=== PATIENT | male | born 1970 | race Caucasian/White ===

== ENCOUNTER 2020-05-31 08:25 | Day surgery (SDC) | payer OTHER ==
[2020-05-26 16:03] VITALS: BMI 25.8
[~2020-05-31 08:25] MED LIST: LACTATED RINGERS 1,000 ML IV SCH; LIDOCAINE 1% (10MG/ML) FOR IV START INTRADERMA PRN
--- NOTE | 2020-05-31 08:34 | P.GSHP ---
History of Present Illness H&P Date: 05/31/20 CHIEF COMPLAINT: Colon screen HISTORY OF PRESENT ILLNESS: The patient is a 50-year-old male who presents for colon screen. Lower endoscopy was offered for further evaluation and management. PAST MEDICAL HISTORY: Please see list. PAST SURGICAL HISTORY: Please see list. MEDICATIONS: Please see list. ALLERGIES: Please see list. SOCIAL HISTORY: No illicit drug use FAMILY HISTORY: No reports of Crohn disease or ulcerative colitis. REVIEW OF ORGAN SYSTEMS: CONSTITUTIONAL: No reports of fevers or chills. PHYSICAL EXAM: VITAL SIGNS: Stable GENERAL: Well-developed pleasant in no acute distress. HEENT: No scleral icterus. Extraocular movements grossly intact. Moist buccal mucosa. NECK: Supple without lymphadenopathy. CHEST: Unlabored respirations. Equal bilateral excursions. CARDIOVASCULAR: Regular rate and rhythm. Distal 2+ pulses. ABDOMEN: Soft, nontender, nondistended. MUSCULOSKELETAL: No clubbing, cyanosis, or edema. ASSESSMENT: 1. Colon screen. PLAN: 1. Recommend proceeding with a lower endoscopy Past Medical History Past Medical History: Asthma History of Any Multi-Drug Resistant Organisms: None Reported Past Surgical History: Orthopedic Surgery Additional Past Surgical History / Comment(s): REPAIR FX JAW. ORIF RT WRIST Past Anesthesia/Blood Transfusion Reactions: No Reported Reaction Smoking Status: Current every day smoker - Past Family History Mother Family Medical History: Cancer Medications and Allergies Home Medications Medication Instructions Recorded Confirmed Type Albuterol Inhaler (Mhu) [Ventolin 1 - 2 puff IH TID 09/19/14 05/26/20 History Hfa Inhaler (Mhu)] Budesonide/Formoterol Fumarate 2 puff INHALATION BID 05/26/20 05/26/20 History [Symbicort 160-4.5 Mcg Inhaler] Allergies Allergy/AdvReac Type Severity Reaction Status Date / Time No Known Allergies Allergy Verified 05/26/20 15:47
[2020-05-31] MEDS ORDERED: LACTATED RINGERS 1,000 ML IV ONE ×2 (08:45)
[2020-05-31 09:06] VITALS: RESP 16; TEMP 97.2
[2020-05-31] MEDS ORDERED: PROPOFOL 10 MG/ML 20 ML VIAL IV ONE (09:32)
--- NOTE | 2020-05-31 09:54 | P.PCN ---
Date of Procedure: 05/31/20 Description of Procedure: PREOPERATIVE DIAGNOSIS: Colonoscopy screening Family history colon cancer, mother POSTOPERATIVE DIAGNOSIS: Colonoscopy screening Family history colon cancer, mother Tubular adenoma ascending colon 2 OPERATION: Colonoscopy to the ileocecal valve and appendiceal orifice, cecum Colonoscopy with hot snare polypectomy SURGEON: Lu Soler MD. ANESTHESIA: MAC. INDICATIONS: The patient is an 50-year-old male who presents family history of colon cancer. Benefits and risks were described and informed consent was obtained. DESCRIPTION OF PROCEDURE: The patient had undergone Suprep. The patient had been brought into the operating room and laid in the left lateral decubitus position. After adequate intravenous sedation, the rectum was examined with 2% lidocaine jelly. The prostate was unremarkable. External hemorrhoids were encountered. The rectal tone was within normal limits. No lesions were palpated in the rectal vault. An Olympus colonoscope was advanced until the cecum, ileocecal valve and appendiceal orifice were clearly viewed. The prep was excellent. Sigmoid diverticulosis was encountered. Colonic polyps were found and removed. No evidence of focal colitis was found. Retroflexion of the scope demonstrated grade 2 internal hemorrhoids without active bleeding or inflammation. The colon was desufflated. The patient had tolerated the procedure well. Withdrawal time was over 6 minutes. FINDINGS: Aronchick preparation quality scale 1 (1-5) Internal hemorrhoids, grade 2 External hemorrhoids, grade 2. No arteriovenous malformations Sigmoid diverticulosis Removal of 2 polyps: - Snare polypectomy ascending colon, 5 mm and 10 mm tubulovillous adenoma polyp. No focal colitis. RECOMMENDATIONS: Given severity of tubular adenomas, recommend repeat colonoscopy 2 years, 2022. Plan - Discharge Summary Discharge Rx Participant: No New Discharge Prescriptions: Continue Albuterol Inhaler (Mhu) [Ventolin Hfa Inhaler (Mhu)] 1 - 2 puff IH TID Budesonide/Formoterol Fumarate [Symbicort 160-4.5 Mcg Inhaler] 2 puff INHALATION BID Discharge Medication List Albuterol Inhaler (Mhu) [Ventolin Hfa Inhaler (Mhu)] 1 - 2 puff IH TID 09/19/14 [History] Budesonide/Formoterol Fumarate [Symbicort 160-4.5 Mcg Inhaler] 2 puff INHALATION BID 05/26/20 [History] Follow up Appointment(s)/Referral(s): Lu Soler MD [STAFF PHYSICIAN] - 1 Week Patient Instructions/Handouts: *Surgery [facility] - (Anesthesia) Endoscopy Discharge Instructions, Colonoscopy (DC), Colorectal Polyps (DC), Diverticulosis Diet (G EN), Diverticulosis (DC) Activity/Diet/Wound Care/Special Instructions: Repeat colonoscopy in 2 years, 2022 Discharge Disposition: HOME SELF-CARE
[2020-05-31 10:55] VITALS: BP 107/73; PULSE 65
== END 2020-05-31 10:45 | disposition home or self-care (01) ==
LOC: ORWHC2ENDO 08:25
PROVIDERS: ATTEND Surgery Plastic and Reconstructive Surgery
DX: Z12.11 Encounter for screening for malignant neoplasm of colon (principal); D12.2 Benign neoplasm of ascending colon; K64.4 Residual hemorrhoidal skin tags; K57.30 Diverticulosis of large intestine without perforation or abscess without bleeding; Z80.0 Family history of malignant neoplasm of digestive organs; K64.1 Second degree hemorrhoids; J45.909 Unspecified asthma, uncomplicated; F17.210 Nicotine dependence, cigarettes, uncomplicated; Z79.51 Long term (current) use of inhaled steroids; Z79.899 Other long term (current) drug therapy; Z98.890 Other specified postprocedural states
CPT/HCPCS: 88305; 45385; J2704

== ENCOUNTER 2020-12-27 07:20 | Emergency (ER) | payer OTHER ==
[2020-12-27 07:27] VITALS: BP 111/82; PULSE 70; RESP 18; TEMP 97.6
[2020-12-27] MEDS ORDERED: HYDROmorphone 1 MG/ML 1 ML SYRINGE IVP STA (07:38)
--- NOTE | 2020-12-27 07:43 | ED ---
General Adult HPI - General Chief complaint: Chest Pain Stated complaint: chest pain Time Seen by Provider: 12/27/20 07:29 Source: patient, RN notes reviewed Mode of arrival: wheelchair Limitations: no limitations - History of Present Illness Initial comments: Patient is a pleasant 50-year-old male presenting to the emergency department with chest injury. Incident occurred a week ago Friday, proximally 9 days ago. Patient was playing basketball when his son struck his shoulder into his chest. He states his son is a big anthony. Patient has had persistent discomfort since that time. Patient did go to a different ER and had an x-ray done. Patient did follow-up with primary care physician who requested getting x-rays of the sternum and ribs. Patient states discomfort is persistent and increases with deep breaths and movements. Patient occasionally hears a clicking sound. No history of similar symptoms previous. No leg pain or leg swelling. - Related Data Home Medications Medication Instructions Recorded Confirmed Albuterol Inhaler (Mhu) [Ventolin 1 - 2 puff IH TID 09/19/14 05/31/20 Hfa Inhaler (Mhu)] Budesonide/Formoterol Fumarate 2 puff INHALATION BID 05/26/20 05/31/20 [Symbicort 160-4.5 Mcg Inhaler] Previous Rx's Medication Instructions Recorded Ibuprofen [Motrin] 600 mg PO Q6HR PRN #20 tab 12/27/20 Allergies Allergy/AdvReac Type Severity Reaction Status Date / Time No Known Allergies Allergy Verified 12/27/20 07:24 Review of Systems ROS Statement: Those systems with pertinent positive or pertinent negative responses have been documented in the HPI. ROS Other: All systems not noted in ROS Statement are negative. Constitutional: Denies: fever Eyes: Denies: eye pain ENT: Denies: ear pain Respiratory: Reports: cough. Denies: dyspnea Cardiovascular: Reports: as per HPI Endocrine: Denies: fatigue Gastrointestinal: Denies: abdominal pain Genitourinary: Denies: dysuria Musculoskeletal: Denies: back pain Skin: Denies: rash Neurological: Denies: weakness Past Medical History Past Medical History: Asthma History of Any Multi-Drug Resistant Organisms: None Reported Past Surgical History: Orthopedic Surgery Additional Past Surgical History / Comment(s): REPAIR FX JAW. ORIF RT WRIST Past Anesthesia/Blood Transfusion Reactions: No Reported Reaction Past Psychological History: No Psychological Hx Reported Smoking Status: Never smoker Past Alcohol Use History: Occasional Past Drug Use History: Marijuana - Past Family History Mother Family Medical History: Cancer General Exam Limitations: no limitations General appearance: alert, in no apparent distress Head exam: Present: normocephalic Eye exam: Present: normal appearance Neck exam: Present: normal inspection Respiratory exam: Present: normal lung sounds bilaterally, chest wall tenderness (Anterior left chest wall) Cardiovascular Exam: Present: regular rate, normal rhythm GI/Abdominal exam: Present: soft. Absent: tenderness Extremities exam: Present: normal inspection Neurological exam: Present: alert Psychiatric exam: Present: normal affect, normal mood Skin exam: Present: normal color Course Vital Signs 12/27/20 07:24 Temperature 97.6 F Pulse Rate 70 Respiratory 18 Rate Blood Pressure 111/82 O2 Sat by Pulse 97 Oximetry EKG Findings - EKG Comments: EKG Findings:: Normal sinus rhythm with a rate of 72. IN 146. QRS 108. QT 32. QTC 418. Normal axis. Normal QRS. No acute ST change. Medical Decision Making - Medical Decision Making Patient reevaluated and updated - Lab Data Result diagrams: 12/27/20 07:50 12/27/20 07:50 Lab Results 12/27/20 12/27/20 12/27/20 Range/Units 07:50 07:50 07:50 WBC 8.7 (3.8-10.6) k/uL RBC 4.93 (4.30-5.90) m/uL Hgb 16.5 (13.0-17.5) gm/dL Hct 47.2 (39.0-53.0) % MCV 95.8 (80.0-100.0) fL MCH 33.4 (25.0-35.0) pg MCHC 34.9 (31.0-37.0) g/dL RDW 12.6 (11.5-15.5) % Plt Count 256 (150-450) k/uL MPV 7.6 Neutrophils % 75 % Lymphocytes % 17 % Monocytes % 4 % Eosinophils % 3 % Basophils % 0 % Neutrophils # 6.5 (1.3-7.7) k/uL Lymphocytes # 1.5 (1.0-4.8) k/uL Monocytes # 0.3 (0-1.0) k/uL Eosinophils # 0.3 (0-0.7) k/uL Basophils # 0.0 (0-0.2) k/uL PT 10.6 (9.0-12.0) sec INR 1.0 (<1.2) APTT 24.3 (22.0-30.0) sec D-Dimer <0.17 (<0.60) mg/L FEU Sodium 138 (137-145) mmol/L Potassium 4.3 (3.5-5.1) mmol/L Chloride 107 (98-107) mmol/L Carbon Dioxide 21 L (22-30) mmol/L Anion Gap 10 mmol/L BUN 13 (9-20) mg/dL Creatinine 0.94 (0.66-1.25) mg/dL Est GFR (CKD-EPI)AfAm >90 (>60 ml/min/1.73 sqM) Est GFR (CKD-EPI)NonAf >90 (>60 ml/min/1.73 sqM) Glucose 167 H (74-99) mg/dL Calcium 9.4 (8.4-10.2) mg/dL Magnesium 1.8 (1.6-2.3) mg/dL Total Bilirubin 0.6 (0.2-1.3) mg/dL AST 25 (17-59) U/L ALT 19 (4-49) U/L Alkaline Phosphatase 73 (38-126) U/L Creatine Kinase 92 (55-170) U/L Troponin I (0.000-0.034) ng/mL Total Protein 6.2 L (6.3-8.2) g/dL Albumin 3.8 (3.5-5.0) g/dL Coronavirus (PCR) (Not Detectd) 12/27/20 12/27/20 Range/Units 07:50 07:50 WBC (3.8-10.6) k/uL RBC (4.30-5.90) m/uL Hgb (13.0-17.5) gm/dL Hct (39.0-53.0) % MCV (80.0-100.0) fL MCH (25.0-35.0) pg MCHC (31.0-37.0) g/dL RDW (11.5-15.5) % Plt Count (150-450) k/uL MPV Neutrophils % % Lymphocytes % % Monocytes % % Eosinophils % % Basophils % % Neutrophils # (1.3-7.7) k/uL Lymphocytes # (1.0-4.8) k/uL Monocytes # (0-1.0) k/uL Eosinophils # (0-0.7) k/uL Basophils # (0-0.2) k/uL PT (9.0-12.0) sec INR (<1.2) APTT (22.0-30.0) sec D-Dimer (<0.60) mg/L FEU Sodium (137-145) mmol/L Potassium (3.5-5.1) mmol/L Chloride (98-107) mmol/L Carbon Dioxide (22-30) mmol/L Anion Gap mmol/L BUN (9-20) mg/dL Creatinine (0.66-1.25) mg/dL Est GFR (CKD-EPI)AfAm (>60 ml/min/1.73 sqM) Est GFR (CKD-EPI)NonAf (>60 ml/min/1.73 sqM) Glucose (74-99) mg/dL Calcium (8.4-10.2) mg/dL Magnesium (1.6-2.3) mg/dL Total Bilirubin (0.2-1.3) mg/dL AST (17-59) U/L ALT (4-49) U/L Alkaline Phosphatase (38-126) U/L Creatine Kinase (55-170) U/L Troponin I <0.012 (0.000-0.034) ng/mL Total Protein (6.3-8.2) g/dL Albumin (3.5-5.0) g/dL Coronavirus (PCR) Not Detected (Not Detectd) - Radiology Data Radiology results: image reviewed (Left rib and chest x-ray and sternal x-ray shows subacute left ninth rib fracture) Disposition Clinical Impression: Rib fracture Disposition: HOME SELF-CARE Condition: Stable Instructions (If sedation given, give patient instructions): Chest Pain (ED), Rib Fracture (ED) Additional Instructions: Please follow-up with primary care physician in the next day or 2 for recheck. Return for difficulty breathing, increased pain, worsening or changing symptoms or other concerns. Prescriptions: Ibuprofen [Motrin] 600 mg PO Q6HR PRN #20 tab PRN Reason: Pain Is patient prescribed a controlled substance at d/c from ED?: No Referrals: Jian Wade MD [Primary Care Provider] - 1-2 days Time of Disposition: 09:16
[2020-12-27 07:59] LABS: Basophils % (A) 0 %; Eosinophils # (A) 0.3 k/uL (0-0.7); Eosinophils % (A) 3 %; HCT 47.2 % (39.0-53.0); HGB 16.5 gm/dL (13.0-17.5); Lymphocytes # (A) 1.5 k/uL (1.0-4.8); Lymphocytes % (A) 17 %; MCH 33.4 pg (25.0-35.0); MCHC 34.9 g/dL (31.0-37.0); MCV 95.8 fL (80.0-100.0); Mean Platelet Volume 7.6; Monocytes # (A) 0.3 k/uL (0-1.0); Monocytes % (A) 4 %; Neutrophils # (A) 6.5 k/uL (1.3-7.7); Neutrophils % (A) 75 %; Platelet Count 256 k/uL (150-450); RBC 4.93 m/uL (4.30-5.90); RDW 12.6 % (11.5-15.5); WBC 8.7 k/uL (3.8-10.6)
[2020-12-27 08:09] LABS: Potassium 4.3 mmol/L (3.5-5.1)
[2020-12-27 08:10] LABS: ALT 19 U/L (4-49); AST 25 U/L (17-59); African American GFR (CKD) >90 (>60 ml/min/1.73 sqM); Albumin 3.8 g/dL (3.5-5.0); Alkaline Phosphatase 73 U/L (38-126); Anion Gap 10 mmol/L; Blood Urea Nitrogen 13 mg/dL (9-20); Calcium 9.4 mg/dL (8.4-10.2); Carbon Dioxide 21 mmol/L (22-30); Chloride 107 mmol/L (98-107); Creatine Kinase 92 U/L (55-170); Glucose 167 mg/dL (74-99); Magnesium 1.8 mg/dL (1.6-2.3); Non-African American GFR(CKD) >90 (>60 ml/min/1.73 sqM); Sodium 138 mmol/L (137-145); Total Bilirubin 0.6 mg/dL (0.2-1.3); Total Protein 6.2 g/dL (6.3-8.2)
[2020-12-27 08:23] LABS: Partial Thromboplastin Time 24.3 sec (22.0-30.0); Prothrombin Time 10.6 sec (9.0-12.0)
--- NOTE | 2020-12-27 08:40 | XR ---
EXAMINATION TYPE: XR ribs LT w pa chest xray DATE OF EXAM: 12/27/2020 CLINICAL HISTORY: Chest and left-sided rib pain after injury. TECHNIQUE: Single frontal view of the chest is obtained. Frontal and oblique images of the left-sided ribs. COMPARISON: None FINDINGS: Slightly elevated left hemidiaphragm. There is no focal air space opacity, pleural effusio n, or pneumothorax seen. The cardiac silhouette size is upper limits of normal. The osseous struct ures are intact. Dedicated images of left-sided ribs show focal expansion and sclerosis left lateral ninth rib suspici ous for subacute or healed fracture. Correlate clinically. No acute displaced left-sided rib fracture is present. Overlying soft tissues unremarkable. IMPRESSION: 1. No acute cardiopulmonary process. 2. Subacute or healed left lateral ninth rib fracture. No acute displaced left-sided rib fracture.
--- NOTE | 2020-12-27 08:41 | XR ---
EXAMINATION TYPE: XR sternum DATE OF EXAM: 12/27/2020 COMPARISON: Same day chest x-ray. HISTORY: Chest and sternal pain from basketball injury. TECHNIQUE: 2 views sternum. FINDINGS: No acute displaced sternal fracture clearly seen. Sternoclavicular joints are thought maint ained. IMPRESSION: As above. If strong clinical suspicion persists further investigation with CT exam would be warranted.
[2020-12-27] MEDS ORDERED: ACET/COD 300 MG/30 MG STARTER PACK 6 TAB BTL PO STA (09:15)
[2020-12-27] MEDS ORDERED: KETOROLAC 15 MG/ML 1 ML VIAL IVP STA (09:15)
== END 2020-12-27 09:54 | disposition home or self-care (01) ==
LOC: EC 07:20
DX: S22.32XA Fracture of one rib, left side, initial encounter for closed fracture (principal); J45.909 Unspecified asthma, uncomplicated; F12.90 Cannabis use, unspecified, uncomplicated; W21.05XA Struck by basketball, initial encounter; Y93.67 Activity, basketball
CPT/HCPCS: 99285; 96374; 96375; 36415; 93005; 85379; 80053; 82550; 83735; 84484; 85025; 85610; 85730; 87635; 71101; 71120; J1170; J1885

== ENCOUNTER 2022-06-26 09:08 | Day surgery (SDC) | payer OTHER ==
[2022-06-20 12:03] VITALS: BMI 26.6
--- NOTE | 2022-06-26 08:39 | P.GSHP ---
History of Present Illness H&P Date: 06/26/22 CHIEF COMPLAINT: Colon screen HISTORY OF PRESENT ILLNESS: The patient is a 52-year-old male who presents for colon screen. Lower endoscopy was offered for further evaluation and management. PAST MEDICAL HISTORY: Please see list. PAST SURGICAL HISTORY: Please see list. MEDICATIONS: Please see list. ALLERGIES: Please see list. SOCIAL HISTORY: No illicit drug use FAMILY HISTORY: No reports of Crohn disease or ulcerative colitis. REVIEW OF ORGAN SYSTEMS: CONSTITUTIONAL: No reports of fevers or chills. PHYSICAL EXAM: VITAL SIGNS: Stable GENERAL: Well-developed pleasant in no acute distress. HEENT: No scleral icterus. Extraocular movements grossly intact. Moist buccal mucosa. NECK: Supple without lymphadenopathy. CHEST: Unlabored respirations. Equal bilateral excursions. CARDIOVASCULAR: Regular rate and rhythm. Distal 2+ pulses. ABDOMEN: Soft, nontender, nondistended. MUSCULOSKELETAL: No clubbing, cyanosis, or edema. ASSESSMENT: 1. Colon screen. PLAN: 1. Recommend proceeding with a lower endoscopy Past Medical History Past Medical History: Asthma History of Any Multi-Drug Resistant Organisms: None Reported Past Surgical History: Orthopedic Surgery Additional Past Surgical History / Comment(s): REPAIR FX JAW. ORIF RT WRIST. COLONOSCOPY Past Anesthesia/Blood Transfusion Reactions: No Reported Reaction Smoking Status: Former smoker - Past Family History Mother Family Medical History: Cancer Medications and Allergies Home Medications Medication Instructions Recorded Confirmed Type Albuterol Inhaler [Ventolin Hfa 1 - 2 puff IH TID 09/19/14 06/20/22 History Inhaler] Budesonide/Formoterol Fumarate 2 puff INHALATION BID 05/26/20 06/20/22 History [Symbicort 160-4.5 Mcg Inhaler] Allergies Allergy/AdvReac Type Severity Reaction Status Date / Time No Known Allergies Allergy Verified 06/20/22 11:56
[2022-06-26] MEDS ORDERED: ONDANSETRON 4 MG/2 ML VIAL IVP PRN (09:27)
[2022-06-26] MEDS ORDERED: LACTATED RINGERS 1,000 ML IV SCH (09:27)
[2022-06-26] MEDS ORDERED: LIDOCAINE 1% (10MG/ML) FOR IV START INTRADERMA PRN (09:27)
[2022-06-26] MEDS ORDERED: LACTATED RINGERS 1,000 ML IV ONE (09:27)
[2022-06-26 09:44] VITALS: RESP 16; TEMP 98
[2022-06-26] MEDS ORDERED: PROPOFOL 10 MG/ML 20 ML VIAL IV ONE (10:14)
[2022-06-26] MEDS ORDERED: LIDOCAINE 2% INJ 20 MG/ML (2 ML VIAL) ONE (10:14)
[2022-06-26 10:50] VITALS: BP 100/65; PULSE 65
--- NOTE | 2022-06-26 10:57 | P.PCN ---
Date of Procedure: 06/26/22 Description of Procedure: PREOPERATIVE DIAGNOSIS: Personal history of colon polyps Colonoscopy screening POSTOPERATIVE DIAGNOSIS: Tubular adenoma sigmoid colon Sigmoid diverticulosis Internal hemorrhoids, grade 2 OPERATION: Colonoscopy to the ileocecal valve and appendiceal orifice, cecum Colonoscopy with cold forceps biopsy SURGEON: Lu Soler MD. ANESTHESIA: MAC. INDICATIONS: The patient is an 52-year-old male who presents personal history of colon polyps. Last colonoscopy 5 years. Benefits and risks were described and informed consent was obtained. DESCRIPTION OF PROCEDURE: The patient had undergone Sutab prep. The patient had been brought into the operating room and laid in the left lateral decubitus position. After adequate intravenous sedation, the rectum was examined with 2% lidocaine jelly. The prostate was unremarkable. External hemorrhoids were encountered. The rectal tone was within normal limits. No lesions were palpated in the rectal vault. An Olympus colonoscope was advanced until the cecum, ileocecal valve and appendiceal orifice were clearly viewed. The prep was good. Sigmoid diverticulosis was encountered. Colonic polyps were found and removed. No evidence of focal colitis was found. Retroflexion of the scope demonstrated grade 2 internal hemorrhoids without active bleeding or inflammation. The colon was desufflated. The patient had tolerated the procedure well. Withdrawal time was over 6 minutes. FINDINGS: Aronchick preparation quality scale 1+ (1-5) Internal hemorrhoids, grade 2 External hemorrhoids, grade 1 No arteriovenous malformations. Sigmoid diverticulosis Removal of 1 polyp: - Cold forceps biopsy at 20 cm from the anal verge, 5 mm polyp. No focal colitis. RECOMMENDATIONS: Recommend repeat colonoscopy 3 years, 2025 Plan - Discharge Summary Discharge Rx Participant: No New Discharge Prescriptions: Continue Albuterol Inhaler [Ventolin Hfa Inhaler] 1 - 2 puff IH TID Budesonide/Formoterol Fumarate [Symbicort 160-4.5 Mcg Inhaler] 2 puff INHALATION BID Discharge Medication List Albuterol Inhaler [Ventolin Hfa Inhaler] 1 - 2 puff IH TID 09/19/14 [History] Budesonide/Formoterol Fumarate [Symbicort 160-4.5 Mcg Inhaler] 2 puff INHALATION BID 05/26/20 [History] Follow up Appointment(s)/Referral(s): Lu Soler MD [STAFF PHYSICIAN] - As Needed Patient Instructions/Handouts: Diverticulosis Diet (GEN), Diverticulosis (GEN), Colorectal Polyps (GEN) Activity/Diet/Wound Care/Special Instructions: Repeat colonoscopy in 3 years, 2025 Discharge Disposition: HOME SELF-CARE
== END 2022-06-26 11:33 | disposition home or self-care (01) ==
LOC: ORWHC2ENDO 09:08
PROVIDERS: ATTEND Surgery Plastic and Reconstructive Surgery
DX: Z12.11 Encounter for screening for malignant neoplasm of colon (principal); K63.5 Polyp of colon; K64.4 Residual hemorrhoidal skin tags; K64.1 Second degree hemorrhoids; K57.30 Diverticulosis of large intestine without perforation or abscess without bleeding; J45.909 Unspecified asthma, uncomplicated; Z98.890 Other specified postprocedural states; Z87.891 Personal history of nicotine dependence; Z80.8 Family history of malignant neoplasm of other organs or systems; Z79.51 Long term (current) use of inhaled steroids
CPT/HCPCS: 45380; J2704; J2001; 88305

== ENCOUNTER 2023-06-27 07:19 | Day surgery (SDC) | payer OTHER ==
[2023-06-23 11:46] VITALS: BMI 25.5
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
[2023-06-27] MEDS: LACTATED RINGERS 1,000 ML IV SCH (08:05)
[2023-06-27] MEDS: HEPARIN SODIUM,PORCINE 5,000 UNIT/ML 1 ML VIAL SQ PRN (08:35)
[2023-06-27] MEDS: DEXAMETHASONE SOD PHOSPHATE 4 MG/ML 1 ML VIAL IV ONE (08:35)
[2023-06-27] MEDS: SCOPOLAMINE 1 MG/72 HR PATCH TRANSDERM ONE (08:35)
[2023-06-27] MEDS: FAMOTIDINE 20 MG/2 ML VIAL IVP ONE (08:35)
[2023-06-27] MEDS: ONDANSETRON 4 MG/2 ML VIAL IVP ONE (08:35)
[2023-06-27] MEDS: MIDAZOLAM 2 MG/2 ML VIAL IV PRN (08:35)
[2023-06-27] MEDS: ACETAMINOPHEN TAB 500 MG TAB PO PRN (08:35)
[2023-06-27 09:04] LABS: Basophils % (A) 1 %; Eosinophils # (A) 0.2 k/uL (0-0.7); Eosinophils % (A) 4 %; HCT 47.4 % (39.0-53.0); HGB 16.2 gm/dL (13.0-17.5); Lymphocytes # (A) 1.2 k/uL (1.0-4.8); Lymphocytes % (A) 26 %; MCH 32.3 pg (25.0-35.0); MCHC 34.1 g/dL (31.0-37.0); MCV 94.8 fL (80.0-100.0); Mean Platelet Volume 7.8; Monocytes # (A) 0.3 k/uL (0-1.0); Monocytes % (A) 6 %; Neutrophils # (A) 2.9 k/uL (1.3-7.7); Neutrophils % (A) 62 %; Platelet Count 224 k/uL (150-450); RDW 12.5 % (11.5-15.5); WBC 4.7 k/uL (3.8-10.6)
[2023-06-27] MEDS: TAMSULOSIN 0.4 MG CAP.ER.24H PO ONE (09:12)
[2023-06-27] MEDS ORDERED: NEOSTIGMINE 1 MG/ML 10 ML VIAL ONE (09:17)
[2023-06-27] MEDS ORDERED: ePHEDrine 50 MG/ML 1 ML VIAL ONE (09:17)
[2023-06-27] MEDS ORDERED: fentaNYL (PF) 50 MCG/ML 2 ML AMP ONE (09:17)
[2023-06-27] MEDS ORDERED: MIDAZOLAM 2 MG/2 ML VIAL ONE (09:17)
[2023-06-27] MEDS ORDERED: SUCCINYLCHOLINE CHLORIDE 200 MG/10 ML VIAL IV ONE (09:17)
[2023-06-27] MEDS ORDERED: PROPOFOL 10 MG/ML 20 ML VIAL IV ONE (09:17)
[2023-06-27] MEDS ORDERED: ROCURONIUM 10 MG/ML (5 ML VIAL) IV ONE (09:17)
[2023-06-27] MEDS ORDERED: HYDROmorphone (PF) 1 MG/ML ONE (09:17)
[2023-06-27] MEDS ORDERED: KETOROLAC 30 MG/ML 1 ML VIAL ONE (09:17)
[2023-06-27] MEDS ORDERED: LIDOCAINE 1% INJ 10MG/ML (20 ML MDV) ONE (09:17)
[2023-06-27] MEDS ORDERED: GLYCOPYRROLATE 0.2 MG/ML 2 ML VIAL ONE (09:17)
[2023-06-27] MEDS: BUPIVACAINE (PF) 0.25% 30 ML VIAL SQ ONE (09:21)
[2023-06-27] MEDS: LACTATED RINGERS 1,000 ML IV ONE (11:10)
--- NOTE | 2023-06-27 11:39 | P.OP ---
Date of Procedure: 06/27/23 Procedure(s) Performed: PREOPERATIVE DIAGNOSIS: Right inguinal hernia, umbilical hernia POSTOPERATIVE DIAGNOSIS: Same PROCEDURE: Laparoscopic da Faraz assisted repair right inguinal hernia with mesh, umbilical hernia repair open SURGEON: Dr. Hagan ANESTHESIA: General OPERATIVE PROCEDURE DETAILS: Patient was placed in the operating table in the supine position. The patient was placed under general anesthesia. The abdomen was prepped and draped in usual sterile fashion. A small curvilinear supraumbilical incision was made. The subcutaneous tissues were dissected. The patient's hernia sac was dissected away from the undersurface of the umbilicus. The umbilical skin was fully mobilized. The defect was less than 1 cm in size. 2 separate 0 Ethibond sutures were used to tighten the fascia there after a 8 mm trocar was advanced and insufflation took place. 2 additional 8 mm trochars were placed in the right upper quadrant and left upper quadrant under visualization. The robotic arms were then brought in and docked into place. The fenestrated bipolar was used in the left arm and the laparoscopic mary was utilized in the right arm. A 30 8 mm scope was used in the up position. The peritoneal cavity was inspected. Patient had a large indirect hernia on the right-hand side. There was some scarring between the ileum and the peritoneum in that location. The peritoneum was incised in a horizontal fashion cephalad to the internal inguinal ring. Following that careful dissection of the preperitoneal space took place. This took place using both electrocautery, sharp dissection but primarily blunt dissection. Visualization of the pubic tubercle and Sunny's ligament took place medially. Full dissection took place laterally as well. The hernia sac was fully dissected. Once we had adequate space the [id number] Progrip mesh was advanced into the preperitoneal space and flattened out appropriately to cover all potential hernia sites. Absorbable 3 oh V-Loc suture was used to secure the mesh medially to Sunny's ligament. The peritoneal defect was then closed using a absorbable 2-0 VLok suture. The hernia sac was incorporated into the peritoneal closure to help prevent future recurrence. The pneumoperitoneum was then evacuated. The fascia at the umbilical defect was closed using [id number] 0 Ethibond sutures. The umbilical dermis was sutured back down to the fascia using a [id number] 2-0 Vicryl stitch. Subcutaneous layer closed using 2-0 Vicryl sutures. The skin of all 3 sites was closed using a 4-0 Monocryl stitch. Skin glue was then applied. UmbilicalHERNIA CHARACTERISTICS: Length: 9 mm Width: 5 mm Type: Umbilical TYPE OF MESH USED: Large ProGrip LOCATION OF MESH: Preperitoneal FIXATION: 3-0 absorbable V-Loc PREOPERATIVE DISCUSSION ON SMOKING CESSASTION: Yes PREOPERATIVE DISCUSSION ON MORBID OBESITY: Yes PREOPERATIVE DISCUSSION ON APPROPRIATE USE OF NARCOTIC USE: Yes PREOPERATIVE EDUCATION: Multi Modal, Smoking Cessation and Weight Loss with BMI over 35. DISPOSITION: Stable to recovery room
[2023-06-27] MEDS: HYDROmorphone 0.5 MG/0.5 ML SYRINGE IVP PRN (11:47)
[2023-06-27 11:54] VITALS: TEMP 97.9
[2023-06-27] MEDS ORDERED: ACETAMINOPHEN TAB 325 MG TAB PO SCH (12:00)
[2023-06-27 14:55] VITALS: BP 112/66; PULSE 88; RESP 18
[2023-06-27] MEDS ORDERED: IBUPROFEN 600 MG TAB PO SCH (15:00)
== END 2023-06-27 14:33 | disposition home or self-care (01) ==
LOC: OR 07:19
PROVIDERS: ATTEND Surgery
DX: K40.90 Unilateral inguinal hernia, without obstruction or gangrene, not specified as recurrent (principal); K42.9 Umbilical hernia without obstruction or gangrene; J45.909 Unspecified asthma, uncomplicated; F12.90 Cannabis use, unspecified, uncomplicated; F17.210 Nicotine dependence, cigarettes, uncomplicated; Z79.51 Long term (current) use of inhaled steroids; Z98.890 Other specified postprocedural states
CPT/HCPCS: 49591; 49650; S2900; 85025

== ENCOUNTER 2024-05-14 15:49 | Emergency (ER) | payer OTHER ==
[2024-05-14 16:04] VITALS: TEMP 97.5
[2024-05-14] MEDS: ACETAMINOPHEN TAB 500 MG TAB PO STA (16:55)
--- NOTE | 2024-05-14 17:19 | XR ---
EXAMINATION TYPE: XR forearm RT, XR hand complete RT DATE OF EXAM: 05/14/2024 5:15 PM INDICATION: Patient age:Male; 54 years old; Reason for study: right forearm injury; PHH. pain COMPARISON: None TECHNIQUE: The right forearm was examined in AP and lateral projections. The right hand was evaluated in PA, lateral, and oblique projections. FINDINGS: No acute osseous pathology, soft tissue swelling or joint dislocations are seen. Postsurgi zoe changes with fixation hardware involving the distal radius. Hardware appears intact. IMPRESSION: 1. No evidence of acute fracture. 2. Postsurgical changes with fixation hardware involving the distal radius. Hardware appears intact. [facility], , 05/14/2024 5:16 PM
--- NOTE | 2024-05-14 17:27 | XR ---
EXAMINATION TYPE: XR shoulder complete RT DATE OF EXAM: 05/14/2024 5:20 PM INDICATION: Patient age:Male; 54 years old; Reason for study: right shoulder injury; pain COMPARISON: None TECHNIQUE: The right shoulder was examined in AP, internally rotated and scapular Y projections. . FINDINGS: No evidence of acute osseous pathology, joint dislocation, or soft tissue swelling. The remaining por tions of the visualized chest are unremarkable. IMPRESSION: No acute osseous pathology. [facility], , 05/14/2024 5:24 PM
--- NOTE | 2024-05-14 17:40 | ED ---
Fall HPI - General Chief Complaint: Fall Stated Complaint: Fall-R shoulder injury Time Seen by Provider: 05/14/24 16:30 Source: patient, RN notes reviewed Mode of arrival: ambulatory - History of Present Illness Initial Comments: 54-year-old male presenting for right shoulder injury 1.5 hours ago. States he was standing on the top of a 6 foot ladder when the ladder slipped on the ice, causing patient and the ladder to fall approximately 6 feet to the ground. States his right arm caught on the gas meter and the wall on the way down. He states he believes he did hit his head but not sure where it. States he went inside after the injury and had "tunnel vision" and lightheadedness that lasted approximately 20 minutes. His main complaint currently is his right shoulder, right forearm, and right hand. Denies blood thinners. - Related Data Home Medications Medication Instructions Recorded Confirmed Albuterol Inhaler [Ventolin Hfa 1 - 2 puff IH TID 09/19/14 06/27/23 Inhaler] Budesonide/Formoterol Fumarate 2 puff INHALATION BID 05/26/20 06/23/23 [Symbicort 160-4.5 Mcg Inhaler] Previous Rx's Medication Instructions Recorded oxyCODONE HCL [OxyIR] 5 mg PO Q6H PRN 3 Days #6 tab 06/27/23 Allergies Allergy/AdvReac Type Severity Reaction Status Date / Time No Known Allergies Allergy Verified 05/14/24 15:59 Review of Systems ROS Statement: Those systems with pertinent positive or pertinent negative responses have been documented in the HPI. ROS Other: All systems not noted in ROS Statement are negative. Past Medical History Past Medical History: Asthma History of Any Multi-Drug Resistant Organisms: None Reported Past Surgical History: Orthopedic Surgery Additional Past Surgical History / Comment(s): REPAIR FX JAW, ORIF RT WRIST, COLONOSCOPY approx. every 2 years. Past Anesthesia/Blood Transfusion Reactions: Previous Problems w/ Anesthesia Additional Past Anesthesia/Blood Transfusion Reaction / Comment(s): States "my arm was on fire when they started my IV." Past Psychological History: No Psychological Hx Reported Smoking Status: Former smoker Past Alcohol Use History: None Reported Past Drug Use History: None Reported - Past Family History Mother Family Medical History: Cancer Additional Family Medical History / Comment(s): Colon General Exam Limitations: no limitations General appearance: alert, in no apparent distress Head exam: Present: atraumatic, normocephalic, normal inspection Eye exam: Present: normal appearance, PERRL, EOMI. Absent: scleral icterus, conjunctival injection, periorbital swelling ENT exam: Present: normal exam, mucous membranes moist Neck exam: Present: normal inspection. Absent: tenderness, meningismus, lymphadenopathy Respiratory exam: Present: normal lung sounds bilaterally. Absent: respiratory distress, wheezes, rales, rhonchi, stridor Cardiovascular Exam: Present: regular rate, normal rhythm, normal heart sounds. Absent: systolic murmur, diastolic murmur, rubs, gallop, clicks GI/Abdominal exam: Present: soft, normal bowel sounds. Absent: distended, tenderness, guarding, rebound, rigid Right Shoulder Exam: Present: normal inspection, full ROM. Absent: tenderness, swelling Upper Arm exam: Present: normal inspection, full ROM. Absent: tenderness, swelling Elbow exam: Present: normal inspection, full ROM. Absent: tenderness, swelling Forearm Wrist exam: Present: full ROM, tenderness (Edema and contusions present over lateral aspect of right forearm with tenderness to palpation). Absent: normal inspection Hand Wrist exam: Present: full ROM. Absent: normal inspection (Multiple superficial abrasions to right hand), tenderness, swelling Vascular: Present: normal capillary refill, radial pulse. Absent: vascular compromise Neurological exam: Present: alert, oriented X3, CN II-XII intact Psychiatric exam: Present: normal affect, normal mood Skin exam: Present: warm, dry, intact, normal color. Absent: rash Course Vital Signs 05/14/24 05/14/24 15:59 18:56 Temperature 97.5 F L 97.5 F L Pulse Rate 99 92 Respiratory 18 20 Rate Blood Pressure 118/81 116/58 O2 Sat by Pulse 98 97 Oximetry Medical Decision Making - Medical Decision Making Was pt. sent in by a medical professional or institution (, PA, [facility] [employer], urgent care, hospital, or [place] health care facility...) When possible be specific @ -No Did you speak to anyone other than the patient for history (EMS, parent, family, police, friend...)? What history was obtained from this source @ -No Did you review nursing and triage notes (agree or disagree)? Why? @ -I reviewed and agree with nursing and triage notes Were old charts reviewed (outside hosp., previous admission, EMS record, old EKG, old radiological studies, urgent care reports/EKG's, [place] health care facility records)? Report findings @ -No old charts were reviewed Differential Diagnosis (chest pain, altered mental status, abdominal pain women, abdominal pain men, vaginal bleeding, weakness, fever, dyspnea, syncope, headache, dizziness, GI bleed, back pain, seizure, CVA, palpatations, mental health, musculoskeletal)? @ -Differential Musculoskeletal Muscular strain, contusion, ligament sprain, fracture, arthritis, septic arthritis, bursitis, cellulitis, muscle spasm, nerve compression, DVT, arterial occlusion, herpes zoster, electrolyte abnormality, tumor.... This is not meant to be in all inclusive list EKG interpreted by me (3pts min.). @ -None X-rays interpreted by me (1pt min.). @ -X-ray right shoulder, right forearm, and right hand reveals no acute process CT interpreted by me (1pt min.). @ -CT brain and C-spine revealed no acute process U/S interpreted by me (1pt. min.). @ -None done What testing was considered but not performed or refused? (CT, X-rays, U/S, labs)? Why? @ -None What meds were considered but not given or refused? Why? @ -None Did you discuss the management of the patient with other professionals (professionals i.e. , PA, [facility] [employer], lab, RT, psych nurse, criminal justice social worker, trial lawyer, teacher, staff readiness officer, casey saw operator)? Give summary @ -No Was smoking cessation discussed for >3mins.? @ -No Was critical care preformed (if so, how long)? @ -No Were there social determinants of health that impacted care today? How? (Homelessness, low income, unemployed, alcoholism, drug addiction, transportation, low edu. Level, literacy, decrease access to med. care, senior living, rehab)? @ -No Was there de-escalation of care discussed even if they declined (Discuss DNR or withdrawal of care, Hospice)? DNR status @ -No What co-morbidities impacted this encounter? (DM, HTN, Smoking, COPD, CAD, Cancer, CVA, ARF, Chemo, Hep., AIDS, mental health diagnosis, sleep apnea, morbid obesity)? @ -None Was patient admitted / discharged? Hospital course, mention meds given and route, prescriptions, significant lab abnormalities, going to OR and other pertinent info. @ -Discharge. This is a 54-year-old male presenting for fall off ladder prior to arrival. Patient endorses pain in the right shoulder, right forearm, and right hand. He is unsure if he hit his head however is endorses episode of lightheadedness and vision changes after the fall. Denies blood thinners. Neuro examination is unremarkable. Right upper extremity is neurovascularly intact. X-ray right shoulder, right forearm, and right hand reveals no acute process. CT brain and C-spine reveals no acute process. Patient updated on results. Appropriate return precautions and follow-up care discussed. Case was discussed with my ED attending Dr. Jones Undiagnosed new problem with uncertain prognosis? @ -No Drug Therapy requiring intensive monitoring for toxicity (Heparin, Nitro, Insulin, Cardizem)? @ -No Were any procedures done? @ -No Diagnosis/symptom? @ -Right shoulder strain Acute, or Chronic, or Acute on Chronic? @ -Acute Uncomplicated (without systemic symptoms) or Complicated (systemic symptoms)? @ -Uncomplicated Side effects of treatment? @ -No Exacerbation, Progression, or Severe Exacerbation? @ -No Poses a threat to life or bodily function? How? (Chest pain, [place], [place], pneumonia, PE, COPD, DKA, ARF, appy, cholecystitis, CVA, Diverticulitis, Homicidal, Suicidal, threat to staff... and all critical care pts) @ -No Disposition Clinical Impression: Right shoulder strain Disposition: HOME SELF-CARE Condition: Stable Instructions (If sedation given, give patient instructions): Muscle Strain (ED) Additional Instructions: Please return to the Emergency Department if symptoms worsen or any other concerns. Is patient prescribed a controlled substance at d/c from ED?: No Referrals: Jian Wade MD [Primary Care Provider] - 1-2 days Time of Disposition: 18:25
--- NOTE | 2024-05-14 18:00 | CT ---
EXAMINATION TYPE: CT brain cspine wo con CT DLP: 1472.6 mGycm, Automated exposure control for dose reduction was used. DATE OF EXAM: 05/14/2024 5:20 PM COMPARISON: None.. CLINICAL INDICATION:Male, 54 years old with history of pain; Pain right shoulder after falling off la dder TECHNIQUE: Brain: Multiple axial CT images of the brain were obtained without IV contrast. Cspine: Axial CT images from the skull base to the inferior aspect of T2 we obtained without intraven ous contrast. Coronal and sagittal reformatted images were also reviewed. FINDINGS: Brain: Extra-axial spaces: No abnormal extra-axial fluid collections. Ventricular system: Within normal limits Cerebral parenchyma: Mild cerebral atrophy. No acute intraparenchymal hemorrhage or mass effect. The rojas-white junction is well differentiated. Cerebellum: Unremarkable. Mass effect: No evidence of midline shift. Intracranial vasculature: unremarkable Soft tissues: Normal. Calvarium/osseous structures: No depressed skull fracture. Paranasal sinuses and mastoid air cells: Mild scattered mucosal thickening. Visualized orbits: Orbital contents are intact. Cervical spine: Fracture: None. Osseous structures: Multilevel degenerative disc disease changes with endplate spurring and disc oste ophyte complex's. Multilevel facet arthropathy. Vertebral alignment: Within normal limits. Spinal canal/Neural Foramina: Disc osteophyte complexes at C4-C5, C5-C6, and C6-C7 with at least mild spinal canal stenosis. Facet joint uncovertebral joint arthropathy scattered throughout the cervical spine with varying degrees of neural foraminal stenosis. Neck soft tissues: Prevertebral soft tissues are within normal limits. Other: The airway is patent. Minimal right apical pleural-parenchymal scarring. IMPRESSION: 1. No acute intracranial process. 2. Paranasal sinus disease. 3. No evidence of cervical spine fracture. 4. Mild multilevel degenerative disc disease. [facility], , 05/14/2024 5:58 PM
[2024-05-14 18:59] VITALS: BP 116/58; PULSE 92; RESP 20
== END 2024-05-14 18:56 | disposition home or self-care (01) ==
LOC: EC 15:49
DX: S46.911A Strain of unspecified muscle, fascia and tendon at shoulder and upper arm level, right arm, initial encounter (principal); S50.11XA Contusion of right forearm, initial encounter; Z87.891 Personal history of nicotine dependence; W11.XXXA Fall on and from ladder, initial encounter
CPT/HCPCS: 70450; 72125; 99284